=== PATIENT | male | born 1950 | race American Indian/Alaskan Native ===

== ENCOUNTER 2018-04-01 11:41 | Emergency (ER) | payer MEDICARE ==
--- NOTE | 2018-04-01 12:25 | C.PDOC ---
History Of Present Illness 67 years old male with PMHx of Prostate Cancer presents to ED for evaluation of clots in lozano bag. Patient reports he had a lozano catheter placed by his urologist on March 12 in the [place] and lozano has not changed since then. He reports, he was here visiting from the [place] for a few days then he saw clots in bag, and today he was unable to urinate and experienced lower abdominal pain since 7AM this morning which prompted the ER visit. Patient denies any difficulty of bowel movements, fever, chills, nausea, vomiting, back pain, or dysuria. Time Seen by Provider: 04/01/18 12:07 Chief Complaint (Nursing): Male Genitourinary History Per: Patient History/Exam Limitations: no limitations Onset/Duration Of Symptoms: Days Current Symptoms Are (Timing): Still Present Quality Of Discomfort: Pressure Associated Symptoms: Urinary Symptoms. denies: Fever, Chills, Nausea, Vomiting, Diarrhea, Back Pain Recent travel outside of the [place]: No Past Medical History Reviewed: Historical Data, Nursing Documentation, Vital Signs - Medical History PMH: Benign Prostatic Hyperplasia, HTN, Hypercholesterolemia Family History: States: No Known Family Hx - Social History Hx Alcohol Use: No Hx Substance Use: No - Immunization History Hx Tetanus Toxoid Vaccination: No Hx Influenza Vaccination: Yes Hx Pneumococcal Vaccination: No Review Of Systems Constitutional: Negative for: Fever, Chills Gastrointestinal: Positive for: Other (Lower abdominal pressure). Negative for: Nausea, Vomiting, Diarrhea Genitourinary: Positive for: Other (Clots in lozano; Unable to urinate). Negative for: Dysuria, Incontinence Musculoskeletal: Negative for: Back Pain Skin: Negative for: Rash Neurological: Negative for: Weakness, Numbness Physical Exam - Physical Exam Appears: Non-toxic, No Acute Distress, Other (Comfortable ) Skin: Warm, Dry, No Rash Head: Atraumatic, Normacephalic Eye(s): bilateral: Normal Inspection, PERRL, EOMI Oral Mucosa: Moist ([place] ) Neck: Normal ROM, Supple Chest: Symmetrical, No Tenderness Cardiovascular: Rhythm Regular, No Murmur Respiratory: Normal Breath Sounds, Rales, Rhonchi, Wheezing Gastrointestinal/Abdominal: Bowel Sounds (Active/Normal ), Soft, Tenderness (Some suprapubic ), No Distention Male Genital: Other ( Lozano in place. No Erythema. Scant amount of dark/yellow urine. Clot in bag. ) Extremity: Normal ROM Extremity: Bilateral: Atraumatic, Normal Color And Temperature, Normal ROM Pulses: Left Radial: Normal, Right Radial: Normal Neurological/Psych: Oriented x3, Normal Speech Gait: Steady Medical Decision Making Medical Decision Making: Plan: * Bladder Scan (323cc) * Irrigation * Change Lozano Progress: * Informed by nurse lozano catheter was changed, patient had immediate urination which flowed freely (150cc). Patient's urine was bloody w/clots, irrigation ordered. Will send Urine Culture. Re-Eval: * 550cc, urine cleared after irrigation. * Patient is comfortable * UA checked: Shows WBCs and blood. * Patient advised to follow up with urologist tomorrow and will start on Bactrim. Patient agreeable w/POC. Disposition Counseled Patient/Family Regarding: Studies Performed, Diagnosis, Need For Followup - Disposition Disposition: HOME/ ROUTINE Disposition Time: 17:37 Condition: STABLE Additional Instructions: GONZÁLEZ SALTER, thank you for letting us take care of you today. Your provider was Katy Block MD and you were treated for UNABLE TO URINATE. The emergency medical care you received today was directed at your acute symptoms. If you were prescribed any medication, please fill it and take as directed. It may take several days for your symptoms to resolve. Return to the Emergency Department if your symptoms worsen, do not improve, or if you have any other problems. Please contact your urologist tomorrow for follow up appoitment. Bring any paperwork you were given at discharge with you along with any medications you are taking to your follow up visit. Our treatment cannot replace ongoing medical care by a primary care provider outside of the emergency department. Thank you for allowing the [facility] team to be part of your care today. Prescriptions: Sulfamethoxazole/Trimethoprim [Bactrim DS 800 mg-160 mg] 1 tab PO BID #14 tab Instructions: Urinary Tract Infection, Adult (DC), How to Care for Your Lozano Catheter, Male, Urinary Retention (DC) Forms: [facility] [employer] [facility] (Vietnamese), General Discharge Instructions - Clinical Impression Clinical Impression: Lozano catheter problem, Acute urinary retention, UTI (urinary tract infection) - Scribe Statement The provider has reviewed the documentation as recorded by the Scribe Slade Benítez All medical record entries made by the Scribe were at my direction and personally dictated by me. I have reviewed the chart and agree that the record accurately reflects my personal performance of the history, physical exam, medical decision making, and the department course for this patient. I have also personally directed, reviewed, and agree with the discharge instructions and disposition.
[2018-04-01 12:57] VITALS: PULSE 90; TEMP 98; O2SAT 97
[2018-04-01 13:55] LABS: URINE BILIRUBIN NEGATIVE (NEGATIVE); URINE BLOOD 3+ (NEGATIVE); URINE CLARITY Hazy (Clear); URINE GLUCOSE (UA) NORMAL (Normal); URINE LEUKOCYTE ESTERASE TRACE Leu/uL (Negative); URINE PROTEIN 2+ mg/dL (NEGATIVE); URINE UROBILINOGEN NORMAL mg/dL (0.2-1.0)
[2018-04-01 14:08] LABS: URINE BACTERIA OCC (<OCC)
[2018-04-01 14:09] LABS: URINE COLOR RED (YELLOW)
[2018-04-01] MEDS ORDERED: Tmp-Smz 800 mg-160 mg DS Tab PO STA (14:15)
[2018-04-01] MEDS ORDERED: Tmp-Smz 800 mg-160 mg DS Tab ONE (17:05)
[2018-04-01 18:36] VITALS: BP 159/98; RESP 20
== END 2018-04-01 18:49 | disposition home or self-care (01) ==
LOC: C.ER 11:41
DX: R33.9 Retention of urine, unspecified (principal); N39.0 Urinary tract infection, site not specified